=== PATIENT | male | born 1985 | race Caucasian/White ===

== ENCOUNTER 2017-12-27 19:09 | Inpatient (IN) | payer BC ==
[2017-12-27] MEDS ORDERED: DIAZEPAM 5 MG TAB PO STA (20:00)
[2017-12-27] MEDS ORDERED: KETOROLAC 30 MG/ML 1 ML VIAL IVP STA (20:00)
[2017-12-27] MEDS ORDERED: MORPHINE SULFATE 4 MG/ML SYRINGE IVP STA (20:00)
--- NOTE | 2017-12-27 20:12 | ED ---
General Adult HPI - General Source: patient, RN notes reviewed Mode of arrival: wheelchair Limitations: no limitations <Dionte Reddy - Last Filed: 12/27/17 20:07> <Anibal Sheridan - Last Filed: 12/27/17 21:05> <Cyn Obregon - Last Filed: 12/27/17 23:15> - General Chief complaint: Neck Pain/Injury Stated complaint: neck pain Time Seen by Provider: 12/27/17 19:42 - History of Present Illness Initial comments: Patient is a 32-year-old male presented to the emergency room today with a chief complaint of a herniated disc. Patient states that he went to a hospital in [facility] 2 weeks ago and was diagnosed with a herniated disc at C7. Patient does admit that he went in because he was experiencing pain going down to the left arm down to his fingertips with some numbness and tingling. Patient does admit that they want to perform the surgery. He states he left because he wanted to have second opinion. He has gone to a surgeon through [facility] who was unable to perform the surgery. He states he is waiting to see another specialist. He states been taking medications at home on Zanaflex, tramadol, gabapentin. He states only relieved with gabapentin. He states that today was sitting on a couch went to sit up and felt a pop in the neck. Patient states pain has been worse with certain movements and ambulating. Patient states still expresses pain going down left arm and hand. States numbness to the fingertips. Denies any other complaints or symptoms. Patient denies any recent fever, chills, shortness of breath, chest pain, back pain, abdominal pain, nausea or vomiting, visual changes, or any other complaints. ( Dionte Reddy) - Related Data Home Medications Medication Instructions Recorded Confirmed Gabapentin [Neurontin] 600 mg PO TID 12/27/17 12/27/17 tiZANidine HCL [Zanaflex] 4 mg PO Q4H 12/27/17 12/27/17 traMADol HCL [Ultram] 50 mg PO Q6HR PRN 12/27/17 12/27/17 Allergies Allergy/AdvReac Type Severity Reaction Status Date / Time onion Allergy Anaphylaxis Verified 12/27/17 19:45 sumatriptan [From Imitrex] Allergy Unknown Verified 12/27/17 19:45 Review of Systems ROS Other: All systems not noted in ROS Statement are negative. <Dionte Reddy - Last Filed: 12/27/17 20:07> ROS Other: All systems not noted in ROS Statement are negative. <Anibal Sheridan - Last Filed: 12/27/17 21:05> ROS Other: All systems not noted in ROS Statement are negative. <Cyn Obregon - Last Filed: 12/27/17 23:15> ROS Statement: Those systems with pertinent positive or pertinent negative responses have been documented in the HPI. Past Medical History Additional Past Medical History / Comment(s): herniated disc History of Any Multi-Drug Resistant Organisms: None Reported Past Surgical History: Orthopedic Surgery Past Psychological History: No Psychological Hx Reported Smoking Status: Never smoker Past Alcohol Use History: Rare Past Drug Use History: None Reported <Dionte Reddy - Last Filed: 12/27/17 20:07> General Exam Limitations: no limitations <Dionte Reddy - Last Filed: 12/27/17 20:07> <Anibal Sheridan - Last Filed: 12/27/17 21:05> <Cyn Obregon - Last Filed: 12/27/17 23:15> - General Exam Comments Initial Comments: General: The patient is awake and alert. Mild distress. Eye: Pupils are equal, round and reactive to light, extra-ocular movements are intact. No nystagmus. There is normal conjunctiva bilaterally. No signs of icterus. Ears, nose, mouth and throat: There are moist mucous membranes and no oral lesions. Neck: The neck is supple, there is no tenderness or JVD. Musculoskeletal: Patient does show limited range of motion of cervical spine due to pain. No tenderness on the thoracic lumbar spine. He is tender at C6- C7. Paravertebral tenderness both left and right sides in this area. Strength 5/5. Pulses equal bilaterally 2+. Neurological: A&O x 3. CN II-XII intact, There are no obvious motor or sensory deficits. Coordination appears grossly intact. Speech is normal. Skin: Skin is warm and dry and no rashes or lesions are noted. Psychiatric: Cooperative, appropriate mood & affect, normal judgment. (Dionte Reddy) Course <Dionte Reddy - Last Filed: 12/27/17 20:07> <Anibal Sheridan - Last Filed: 12/27/17 21:05> <Cyn Obregon - Last Filed: 12/27/17 23:15> Vital Signs 12/27/17 19:22 Temperature 98.2 F Pulse Rate 100 Respiratory 18 Rate Blood Pressure 167/90 O2 Sat by Pulse 99 Oximetry Was reassessed at 1925, he is unable to move his left arm muscle strength in the left arm is significantly decreased this worsening of the weakness in the left arm happened today after he heard a pop when he was trying to move at home he was seen in the hospital in [place] and then he was seen at [facility] now is radiating to hear back from your family I'm concerned about his motor deficit to the left arm and cannot do a CT of the cervical spine, ideally he needs MR and neurosurgeon or orthopedic surgeon with the spinal specialty, CT of the cervical spine is unremarkable MRI done out of the hospital was up noted in the system, considering the patient's severe symptoms and been admitted to Dr. Nj and will consult Dr. Talley. Here he has seen acute neurosurgeon's in the past he is seeking second and third opinion and is requesting for admission or transfer to another Center (Cyn Obregon) - Reevaluation(s) Reevaluation #1: 12/27/17 20:10 Patient states came to the emergency room because he is expressing increased pain in the back of the neck with radiation down the left arm. He does admit that these are symptoms that he's been expressing the last few weeks was told that he had a herniated disc at C7. Patient states that he was hoping to surgical consult. Initially did not want try any pain medicine for the pain. States they usually do not help. Patient does not want try steroids as he states it caused weight gain in the past. At this time patient is agreeable to try pain medication with muscle relaxant and anti-inflammatory to see if there is any improvement of symptoms. Case discussed and signed out to attending physician Dr. Sheridan (Dionte Reddy) Reevaluation #2: 12/27/17 21:05 The patient's care is endorsed to Dr. Obregon (Anibal Sheridan) Disposition <Dionte Reddy - Last Filed: 12/27/17 20:07> <Anibal Sheridan - Last Filed: 12/27/17 21:05> <Cyn Orbegon - Last Filed: 12/27/17 23:15> Clinical Impression: Neck pain, Radiculopathy, Left arm weakness Disposition: ADMITTED IP TO THIS [facility] Condition: Good Referrals: Valorie Smith DO [Primary Care Provider] - 1-2 days
[2017-12-27] MEDS ORDERED: DEXAMETHASONE SOD PHOSPHATE 10 MG/ML 1 ML VIAL IV STA (21:27)
--- NOTE | 2017-12-27 22:26 | CT ---
EXAMINATION TYPE: CT cervical spine wo con DATE OF EXAM: 12/27/2017 COMPARISON: NONE HISTORY: Neck pain. CT DLP: 1686.8 mGycm Automated exposure control for dose reduction was used. TECHNIQUE: CT scan of the cervical spine is obtained without contrast, axial images are obtained, sa gittal and coronal reformatted images are also reviewed. FINDINGS: The cervical vertebra have normal alignment. Disc spaces are fairly normal. Exam is limited by patient size. Posterior elements are intact. Facet joints appear normal. Skull base is intact. IMPRESSION: Normal CT scan of the cervical spine. No fracture.
[2017-12-27] MEDS ORDERED: ONDANSETRON 4 MG/2 ML VIAL IVP STA (22:36)
[2017-12-27] MEDS ORDERED: NALOXONE 0.4 MG/ML 1 ML VIAL IV PRN (23:15)
[2017-12-27] MEDS ORDERED: MORPHINE SULFATE 4 MG/ML SYRINGE IV PRN (23:15)
[2017-12-27] MEDS ORDERED: predniSONE 50 MG TAB PO STA (23:19)
[2017-12-27] MEDS ORDERED: AMOXIC-POT CLAV 875-125MG 1 EACH TAB PO STA (23:24)
[2017-12-28 00:41] VITALS: BMI 57.7
[2017-12-28] MEDS: tiZANidine 4 MG TAB PO SCH ×7 (00:56→23:31)
[2017-12-28] MEDS: KETOROLAC 30 MG/ML 1 ML VIAL IVP PRN ×3 (02:29→15:05)
[2017-12-28] MEDS: MORPHINE SULFATE 2 MG/ML SYRINGE IV PRN ×2 (05:54→12:16)
[2017-12-28] MEDS: ONDANSETRON 4 MG/2 ML VIAL IVP PRN (06:03)
[2017-12-28] MEDS: GABAPENTIN 300 MG CAP PO SCH ×3 (08:35→20:11)
[2017-12-28] MEDS ORDERED: AMOXIC-POT CLAV 875-125MG 1 EACH TAB PO SCH (09:00)
[2017-12-28] MEDS: traMADol 50 MG TAB PO PRN ×2 (11:44→19:01)
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
[2017-12-28 14:40] LABS: ALT 29 U/L (21-72); AST 20 U/L (17-59); Albumin 4.3 g/dL (3.5-5.0); Alkaline Phosphatase 72 U/L (38-126); Anion Gap 17 mmol/L; Blood Urea Nitrogen 22 mg/dL (9-20); Calcium 9.8 mg/dL (8.4-10.2); Carbon Dioxide 20 mmol/L (22-30); Chloride 103 mmol/L (98-107); Glucose 229 mg/dL (74-99); Potassium 4.7 mmol/L (3.5-5.1); Sodium 140 mmol/L (137-145); Total Bilirubin 0.4 mg/dL (0.2-1.3); Total Protein 7.1 g/dL (6.3-8.2)
[2017-12-28 14:51] LABS: Basophils % (A) 0 %; Eosinophils % (A) 0 %; HCT 43.5 % (39.0-53.0); HGB 15.1 gm/dL (13.0-17.5); Lymphocytes # (A) 0.9 k/uL (1.0-4.8); Lymphocytes % (A) 7 %; MCH 28.7 pg (25.0-35.0); MCHC 34.6 g/dL (31.0-37.0); MCV 82.9 fL (80.0-100.0); Mean Platelet Volume 7.2; Monocytes # (A) 0.5 k/uL (0-1.0); Monocytes % (A) 4 %; Neutrophils # (A) 10.7 k/uL (1.3-7.7); Neutrophils % (A) 88 %; Platelet Count 261 k/uL (150-450); RBC 5.25 m/uL (4.30-5.90); RDW 13.2 % (11.5-15.5); WBC 12.1 k/uL (3.8-10.6)
[2017-12-28] MEDS: PIPERACILLIN-TAZOBACTAM 3.375 GM in DEXTROSE/WATER 1 50ML.BAG IVPB SCH ×2 (15:08→23:31)
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
[2017-12-29] MEDS: MORPHINE SULFATE 2 MG/ML SYRINGE IV PRN ×3 (00:40→21:43)
[2017-12-29 05:10] LABS: Hemoglobin A1C 6.1 % (4.0-6.0)
[2017-12-29] MEDS: tiZANidine 4 MG TAB PO SCH ×6 (05:47→23:42)
[2017-12-29] MEDS: GABAPENTIN 300 MG CAP PO SCH ×3 (07:39→21:44)
[2017-12-29] MEDS: PIPERACILLIN-TAZOBACTAM 3.375 GM in DEXTROSE/WATER 1 50ML.BAG IVPB SCH ×2 (07:49→17:18)
[2017-12-29] MEDS: KETOROLAC 30 MG/ML 1 ML VIAL IVP PRN ×2 (09:26→20:54)
[2017-12-29 09:34] LABS: Basophils % (A) 0 %; Eosinophils % (A) 0 %; HCT 42.6 % (39.0-53.0); Lymphocytes # (A) 1.8 k/uL (1.0-4.8); Lymphocytes % (A) 15 %; MCH 27.6 pg (25.0-35.0); MCHC 32.8 g/dL (31.0-37.0); MCV 84.1 fL (80.0-100.0); Mean Platelet Volume 7.3; Monocytes # (A) 0.6 k/uL (0-1.0); Monocytes % (A) 5 %; Neutrophils # (A) 9.4 k/uL (1.3-7.7); Neutrophils % (A) 78 %; Platelet Count 263 k/uL (150-450); RBC 5.06 m/uL (4.30-5.90); RDW 13.4 % (11.5-15.5)
[2017-12-29 10:04] LABS: ALT 26 U/L (21-72); AST 13 U/L (17-59); Albumin 4.2 g/dL (3.5-5.0); Alkaline Phosphatase 77 U/L (38-126); Anion Gap 14 mmol/L; Blood Urea Nitrogen 23 mg/dL (9-20); Calcium 9.5 mg/dL (8.4-10.2); Carbon Dioxide 22 mmol/L (22-30); Chloride 107 mmol/L (98-107); Glucose 137 mg/dL (74-99); Potassium 4.5 mmol/L (3.5-5.1); Sodium 143 mmol/L (137-145); Total Bilirubin 0.2 mg/dL (0.2-1.3); Total Protein 6.8 g/dL (6.3-8.2)
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
[2017-12-29] MEDS: INSULIN ASPART 100 UNIT/ML 1 ML 10 ML VIAL SQ SCH ×4 (12:26→21:12)
[2017-12-29] MEDS ORDERED: IV FLUID CONTINUATION 1,000 ML IV ONE (12:37)
[2017-12-29 12:40] LABS: Glucose,Whole Blood 115 mg/dL (75-99)
[2017-12-29] MEDS: ONDANSETRON 4 MG/2 ML VIAL IVP PRN (12:43)
[2017-12-29] MEDS ORDERED: BACITRACIN 50,000 UNIT, POLYMYXIN B 500,000 UNIT in SODIUM CHLORIDE 0.9% IRRIGATIO 1,00... IRRIGATION ONE (12:45)
[2017-12-29] MEDS ORDERED: KETAMINE 10 MG/ML 20 ML VIAL ONE (12:50)
[2017-12-29] MEDS ORDERED: DEXAMETHASONE SOD PHOS (MDV) 100 MG/10 ML VIAL ONE (12:50)
[2017-12-29] MEDS ORDERED: PROPOFOL 10 MG/ML 20 ML VIAL IV ONE (12:50)
[2017-12-29] MEDS ORDERED: SUCCINYLCHOLINE CHLORIDE VIAL 200 MG/10 ML VIAL IV ONE (12:50)
[2017-12-29] MEDS ORDERED: ePHEDrine SULFATE/0.9% NACL/PF 50 MG/5 ML SYRINGE IV ONE (12:50)
[2017-12-29] MEDS ORDERED: MIDAZOLAM 2 MG/2 ML VIAL ONE (12:50)
[2017-12-29] MEDS ORDERED: fentaNYL (PF) 50 MCG/ML 2 ML AMP ONE (12:50)
[2017-12-29] MEDS ORDERED: LIDOCAINE 1% INJ 10MG/ML (20 ML MDV) ONE (12:50)
[2017-12-29] MEDS ORDERED: HYDROmorphone (PF) 1 MG/ML ONE (12:50)
[2017-12-29] MEDS ORDERED: CEFAZOLIN IV ONE ×2 (13:15)
[2017-12-29] MEDS ORDERED: SODIUM CHLORIDE 0.9% IV ONE ×2 (13:15)
[2017-12-29] MEDS ORDERED: LACTATED RINGERS 1,000 ML IV ONE (13:15)
[2017-12-29] MEDS ORDERED: BUPIVACAINE-EPI 0.5%-1:200,000 10 ML VIAL SQ ONE ×2 (13:34→15:04)
[2017-12-29] MEDS ORDERED: THROMBIN (BOVINE) 5,000 UNIT VIAL TOPICAL ONE (13:34)
[2017-12-29] MEDS ORDERED: GELATIN SPONGE,ABSORB (SMALL) 1 EACH SPONGE TOPICAL ONE (13:34)
[2017-12-29] MEDS ORDERED: BENZOCAINE/MENTHOL LOZENG 1 EACH LOZENGE MUCOUS MEM PRN (15:23)
[2017-12-29] MEDS ORDERED: HYDROmorphone 0.5 MG/0.5 ML SYRINGE IVP PRN ×2 (15:23)
[2017-12-29] MEDS ORDERED: DIAZEPAM 5 MG TAB PO PRN (15:23)
[2017-12-29] MEDS ORDERED: MAGNESIUM HYDROXIDE 2,400 MG/10 ML CUP PO PRN (15:23)
--- NOTE | 2017-12-29 15:34 | P.OP ---
Date of Procedure: 12/29/17 Preoperative Diagnosis: Cervical myelopathy, acute left upper extremity weakness, acute herniated nucleus pulposus C6 7 with neurologic change, left her extremity radiculopathy, neck pain with left upper extremity pain, morbid obesity Postoperative Diagnosis: Same Anesthesia: GETA Pathology: none sent Condition: stable Disposition: PACU Description of Procedure: BRIEF OPERATIVE NOTE Preoperative Diagnosis: Cervical myelopathy, left upper extremity acute weakness and radiculopathy, acute herniated nucleus pulposis C6 7, neck pain and left upper extremity pain, morbid obesity Postoperative Diagnosis: Same Procedure: Anterior cervical decompression with discectomy and fusion C6 7 Placement of interbody graft C6 7 Application of anterior cervical plate C6 7 Increased level of difficulty of the case due to patient's morbid obesity Surgeon: Dr. Godoy Public Relations: Physician congressional assistant student Anesthesia: General anesthesia Estimated blood loss: Approximately 100 mL Complications: None apparent Components implanted: K2M Marydel anterior cervical plate system with a 24 mm plate and 4 screws with the Vikos interbody allograft bone graft Disposition: To recovery room in good stable condition. OPERATIVE INDICATIONS The patient has had relatively new and acute issues in their neck and upper extremities. Approximately 3 weeks ago he started having severe pain in his neck and his left upper extremity. A couple months before that he was having pain at his neck and toward his left shoulder 3 weeks ago he started having severe weakness in his left upper extremity. He was evaluated initially in [place] and then in [place] and saw neurosurgery in those places. He was recommended for surgery but was unable proceed with surgical intervention at that point. He presented here at the current [facility] and upon evaluation was found have a large disc herniation at C6 7 which was acute for him causing acute symptoms at his neck and left upper extremity including weakness and early myelopathic symptoms at his left upper extremity hyperreflexia. The patient has been through some conservative treatment with IV steroids but was not having any improvement. We discussed various treatment options including surgery, and the patient wishes to proceed with surgery We discussed the risk, patient's alternatives and benefits of surgery including but not limited to, risk of bleeding risk of infection, risk of need for further surgery, risk of decreased, loss of motion, muscle function, malunion nonunion, hardware failure, nerve damage, paralysis, heart attack, and . OPERATIVE SUMMARY After discussing all the risks, patient alternatives and benefits at length, the patient elected to proceed with surgical intervention, signed informed consent, and presented for their procedure. The patient was seen and examined in the preoperative holding area and the surgical site was marked. The patient was given antibiotics and brought to the operating room. The patient was positioned on the operating room table in a supine position being careful to pad any bony prominences and pressure points. The patient is approximately 400 pounds and morbidly obese and we had to make special accounting for his body habitus in positioning itself. The patient was sedated and intubated by anesthesia in standard fashion. Once the airway and C-spine were stabilized the patient's arms were padded and tucked at her side, with her shoulders gently taped. The head was placed in a donut pad with the neck in good neutral alignment and position. We were careful to maintain the patient's cervical spine and good neutral alignment and position throughout. The patient was prepped and draped in a normal standard fashion. An appropriate timeout and keystone protocol performed. We were able to proceed with the surgery. The local wound area was infiltrated with local anesthetic. An incision was made transversely approximately 2-1/2 cm over the appropriate levels at C6. Dissection was taken down subcutaneously to the level of the platysma which was split in line with its fibers. Dissection was taken with a carotid approach, with the trachea and esophagus medial and the carotid sheath laterally. We dissected down to the anterior surface of the vertebral bodies. Given the patient's body habitus and morbid obesity the dissection and the entirety of the case required extra time and effort to perform. Intraoperative x-ray was taken in attempts to show the appropriate level. Multiple x-rays intraoperatively were taken. We were unable to directly visualize the C6 7 level on x-ray. I placed a needle at C5 6 and then at C4 5 to take intraoperative x-rays. I was able to visualize the needle at C4 5 disc space and I moved caudal 2 disc spaces to positively confirmed the C6 7 level. With the appropriate level positively confirmed, we were able to proceed with discectomy at the appropriate levels of C6 7. All of the operative levels were exposed appropriately. The patient had all their twitches back, and there was no evidence of recurrent laryngeal issue. The wound was copiously irrigated and suctioned dry as had been done periodically throughout the case. At the appropriate level/levels, I established an annulotomy with an 11 blade scalpel. A discectomy was performed with a combination of pituitary rongeurs, curettes , a high-speed bur, and Kerrison rongeurs. Note was made of large disc herniation which was extruded under the posterior longitudinal ligament causing severe stenosis centrally and at the left. The posterior longitudinal ligament was taken down as were any posterior osteophytes. This gave good central and bilateral foraminal decompression. There is no evidence of any dural tear or leak. The endplates were prepared with a high-speed bur. With the endplates in good parallel position, I was able to size for the appropriate size interbody graft. The wound was irrigated and suctioned dry the graft was prepared and malleted into position. It had good alignment and position with the anterior surface flush with the anterior surface of the vertebral bodies of C6 and C7. With the grafts intact, I was able to measure and contour and appropriate sized plate. The plate was positioned at the midline over the appropriate levels of C6 7. Screw holes were established with a hand drill and drill guide. Screws were placed in good alignment and position with excellent bony purchase. They were seated under the locking device. The construct was checked and found to be stable. Intraoperative x-ray was taken, but with the patient's body habitus it was impossible to see the C6 7 levels. There was no evidence of any dural tear or leak. Good hemostasis was maintained. The wound was copiously irrigated and suctioned dry as had been done periodically throughout the case. The platysma was closed with absorbable suture. The subcutaneous tissue was closed. The subcuticular tissue was closed with absorbable suture. The wound was cleaned and dried and dressed appropriately. A soft cervical collar was placed appropriately. The patient was woken up by anesthesia, extubated, transferred back gently to their hospital bed and brought to the recovery room in good stable condition. The patient will be admitted to the hospital for appropriate postoperative care , medical management and monitoring. We will continue to follow them closely about the postoperative course.
[2017-12-29] MEDS ORDERED: diphenhydrAMINE 50 MG/ML 1 ML VIAL IVP ONE (15:50)
--- NOTE | 2017-12-29 16:06 | XR ---
Limited cervical spine HISTORY: Needle placement Single lateral view of the cervical spine is submitted. There is a needle present within the C4-5 dis c space. Exam somewhat limited technically. Endotracheal tube is present. IMPRESSION: Orthopedic localization.
--- NOTE | 2017-12-29 16:07 | XR ---
EXAMINATION TYPE: XR cervical spine 1V DATE OF EXAM: 12/29/2017 COMPARISON: 12/29/2017 2:12 PM HISTORY: Hardware placement TECHNIQUE: Lateral view of the cervical spine was obtained FINDINGS/IMPRESSION: The patient is intubated. Cervical spine is only visualized at C2-C3 and maintai ns alignment. Paranasal sinus endoscope is noted during an intraoperative procedure.
[2017-12-29] MEDS: SODIUM CHLORIDE 0.9% 1,000 ML IV SCH (17:17)
[2017-12-29] MEDS: HYDROcodone/APAP 5-325MG 1 EACH TAB PO PRN ×2 (17:25→20:55)
[2017-12-29 17:32] LABS: Glucose,Whole Blood 119 mg/dL (75-99)
[2017-12-29] MEDS: traMADol 50 MG TAB PO PRN (19:16)
[2017-12-29 20:25] LABS: Glucose,Whole Blood 309 mg/dL (75-99)
[2017-12-29 21:49] LABS: Glucose,Whole Blood 255 mg/dL (75-99)
[2017-12-29 21:56] VITALS: TEMP 98
[2017-12-30] MEDS: traMADol 50 MG TAB PO PRN ×3 (00:47→14:01)
[2017-12-30] MEDS: HYDROcodone/APAP 5-325MG 1 EACH TAB PO PRN ×3 (00:48→10:49)
[2017-12-30] MEDS: KETOROLAC 30 MG/ML 1 ML VIAL IVP PRN ×2 (02:58→09:19)
[2017-12-30] MEDS: tiZANidine 4 MG TAB PO SCH ×3 (02:58→11:47)
[2017-12-30] MEDS: SODIUM CHLORIDE 0.9% 1,000 ML IV SCH (02:58)
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
[2017-12-30 07:08] LABS: Glucose,Whole Blood 133 mg/dL (75-99)
[2017-12-30] MEDS: INSULIN ASPART 100 UNIT/ML 1 ML 10 ML VIAL SQ SCH ×2 (07:21→11:49)
--- NOTE | 2017-12-30 08:53 | P.DS ---
Providers Date of admission: 12/28/17 15:07 Expected date of discharge: 12/30/17 Attending physician: Roya Nj Consults: 12/27/17 23:15 Consult Physician Stat Consulting Provider: Timur Godoy Consult Reason/Comments: Neck pain, radiculopathy, left arm weakness Do you want consulting provider notified?: Yes 12/29/17 10:38 Consult Physician Stat Consulting Provider: Kaitlin Obregon Consult Reason/Comments: right thigh abscess and surgical clearance for neck surgery Do you want consulting provider notified?: Yes Primary care physician: Valorie Smith - Discharge Diagnosis(es) (1) Herniated nucleus pulposus, C6-7 left Current Visit: Yes Status: Acute (2) Radiculopathy affecting upper extremity Current Visit: Yes Status: Acute (3) Morbid obesity Current Visit: Yes Status: Acute (4) Abscess of left thigh Current Visit: Yes Status: Acute (5) Left arm weakness Current Visit: Yes Status: Acute (6) Neck pain Current Visit: Yes Status: Acute Hospital Course: This is a pleasant 32-year-old male who presented with C6-7 herniated nucleus pulposus resulting in left paracentral and left neural foraminal stenosis with left upper extremity radiculopathy and weakness and cervical myelopathy. He was admitted for further evaluation to the emergency department and subsequently underwent surgical intervention yesterday, 12/29/2017. The patient underwent an anterior cervical decompression and fusion at C6-7 and tolerated the procedure well and did well postoperatively. He continues to have some pain in the surgical site but states overall his symptoms have significantly improved. He is not currently experiencing any left upper extremity radiculopathy. He has had some improvement in his strength already postsurgically, most significant with increased left vegetable trimmer strength. She does feel he is ready for discharge today. Condition on day of discharge stable. Patient will be discharged home. Patient was cleared preoperatively for surgery by Dr. Nj. Patient currently denies any nausea, vomiting, fever, or chills. Patient is eating and voiding freely without difficulty. Patient may shower Tegaderm dressing intact. Patient may remove Tegaderm dressing in 3 days and shower without a dressing at that time. Patient should keep Steri- Strips intact and allow them to fall off naturally. Patient should refrain from driving until at least after their first follow-up appointment in the office. Patient should avoid excessive neck flexion, extension, rotation, and lateral sidebending; no overhead lifting; no lifting greater than 10 pounds. Patient does admit to taking Ultram, Zanaflex, and Neurontin outpatient setting. He states he has limited number of alternative left. At discharge, he 'll be given a prescription for Ultram 50 mg 1-2 tabs every 6 hours as needed for pain, dispense #90. He is also had evidence of an infection of the posterior left thigh and has been on IV antibiotic medication. He was seen and examined by infectious disease yesterday and has had some improvement since beginning IV antibiotics. Will be given a prescription for Augmentin 875 mg/ 125 mg 1 tab every 12 hours dispense #20. Physical Exam on day of discharge: Patient is awake, alert, and oriented 3 Vital signs stable Good chest excursion with deep inspiration and expiration Abdomen soft nontender No signs or symptoms of DVT; no calf pain Full range of motion of the cervical spine with adequate flexion, extension, and bilateral rotation [employer] Guard strength, thumb strength, interosseous strength, biceps strength, triceps strength, and shoulder strength positive sustained bilaterally Soft cervical collar not currently intact Incision is clean, dry, and intact; no erythema, purulence, or signs of infection Tegaderm dressing and non-stick Telfa intact Procedures: Anterior cervical decompression and fusion C6-7 Patient Condition at Discharge: Good Plan - Discharge Summary New Discharge Prescriptions: New Amoxicillin/Potassium Clav [Augmentin 875-125 Tablet] 1 tab PO Q12HR #20 tab traMADol HCL [Ultram] 50 mg PO Q6HR PRN #90 tab PRN Reason: Pain No Action traMADol HCL [Ultram] 50 mg PO Q6HR PRN PRN Reason: Pain Gabapentin [Neurontin] 600 mg PO TID tiZANidine HCL [Zanaflex] 4 mg PO Q4H Discharge Medication List Gabapentin [Neurontin] 600 mg PO TID 12/27/17 [History] tiZANidine HCL [Zanaflex] 4 mg PO Q4H 12/27/17 [History] traMADol HCL [Ultram] 50 mg PO Q6HR PRN 12/27/17 [History] Amoxicillin/Potassium Clav [Augmentin 875-125 Tablet] 1 tab PO Q12HR #20 tab 08/18 [Rx] traMADol HCL [Ultram] 50 mg PO Q6HR PRN #90 tab 12/30/17 [Rx] Follow up Appointment(s)/Referral(s): Valorie Smith DO [Primary Care Provider] - 1-2 days Darius Jameson PAC [PHYSICIAN [employer] SERVICE TECHNICIAN] - 2 Weeks (Patient may follow-up with Darius Jameson PA-C or Dr. Kevon Godoy at [facility] in 2-3 weeks following discharge. ) Activity/Diet/Wound Care/Special Instructions: 1. Patient may shower with Tegaderm dressing intact. 2. Patient may remove Tegaderm dressing in 3 days and shower without a dressing at that time. 3. Patient should keep Steri-Strips intact and allow them to fall off naturally. 4. Patient should refrain from driving until at least after their first follow- up appointment in the office. 5. Patient should avoid excessive cervical flexion, extension, rotation, and sidebending; no lifting greater than 10 pounds 6. Take medications as prescribed 7. Do not soak in tub Discharge Disposition: HOME SELF-CARE
[2017-12-30] MEDS ORDERED: NYSTATIN 100,000 UNIT/GM POWD 15 GM TOPICAL SCH (09:00)
[2017-12-30] MEDS ORDERED: SENNOSIDES-DOCUSATE SODIUM 1 EACH TAB PO SCH (09:00)
[2017-12-30] MEDS: GABAPENTIN 300 MG CAP PO SCH (09:11)
[2017-12-30 09:53] VITALS: BP 145/81; PULSE 82; RESP 20
[2017-12-30 10:21] LABS: Basophils % (A) 0 %; Eosinophils % (A) 0 %; HCT 41.3 % (39.0-53.0); HGB 13.7 gm/dL (13.0-17.5); Lymphocytes # (A) 1.7 k/uL (1.0-4.8); Lymphocytes % (A) 15 %; MCH 28.6 pg (25.0-35.0); MCHC 33.2 g/dL (31.0-37.0); MCV 86.3 fL (80.0-100.0); Mean Platelet Volume 7.1; Monocytes # (A) 0.5 k/uL (0-1.0); Monocytes % (A) 5 %; Neutrophils # (A) 8.9 k/uL (1.3-7.7); Neutrophils % (A) 79 %; Platelet Count 277 k/uL (150-450); RBC 4.79 m/uL (4.30-5.90); RDW 13.6 % (11.5-15.5); WBC 11.2 k/uL (3.8-10.6)
[2017-12-30 10:33] LABS: ALT 27 U/L (21-72); AST 18 U/L (17-59); Alkaline Phosphatase 60 U/L (38-126); Anion Gap 14 mmol/L; Blood Urea Nitrogen 25 mg/dL (9-20); Calcium 9.1 mg/dL (8.4-10.2); Carbon Dioxide 23 mmol/L (22-30); Chloride 106 mmol/L (98-107); Glucose 213 mg/dL (74-99); Potassium 4.4 mmol/L (3.5-5.1); Sodium 143 mmol/L (137-145); Total Bilirubin 0.3 mg/dL (0.2-1.3); Total Protein 6.5 g/dL (6.3-8.2)
[2017-12-30 11:31] LABS: Glucose,Whole Blood 183 mg/dL (75-99)
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
--- NOTE | 2017-12-30 13:00 | PN ---
PROGRESS NOTE DATE OF SERVICE: 12/30/2017. REASON FOR FOLLOWUP: Left thigh cellulitis and groin area cutaneous . INTERVAL HISTORY: The patient is afebrile. Overall pain to the thigh area seemed to have improved. Denies having any chest pain or shortness of breath. Occasional cough. No abdominal pain and no diarrhea. PHYSICAL EXAMINATION: On examination, blood pressure 145/81 with a pulse of 82, temperature of 98. He is 96% on room air. General description is a middle aged male up in the room in no distress. RESPIRATORY SYSTEM: Unlabored breathing, clear to auscultation anteriorly. HEART: S1, S2. Regular rate and rhythm. ABDOMEN: Soft, no tenderness. Left posterior thigh area: Very minimal induration. No fluctuation was noticed. Redness padilla decreased. No drainage. LABS: Hemoglobin 13.7, white count 11.2. BUN of 25, creatinine 0.94. DIAGNOSTIC IMPRESSION AND PLAN: Patient with left posterior thigh cellulitis started more likely as a folliculitis could be a streptococcal infection, responded to cefazolin antibiotic. Will be switched over to Keflex 500 mg q.6 for 10 days with in between the groin area twice a day. This was explained to the nurse practitioner for the primary team. MMODL / IJN: [id number] /
== END 2017-12-30 15:45 | disposition home or self-care (01) | DRG 472 ==
LOC: EC 19:09 → 4MS4W 23:15 → OBSVTOIN 12-28 15:07 → 5MS5E 12-29 16:23
PROVIDERS: ADMIT Internal Medicine; ATTEND Internal Medicine
PROC: 0RT30ZZ Resection of Cervical Vertebral Disc, Open Approach (ICD-10-PCS; principal; 2017-12-28)
PROC: 0RG10A0 Fusion of Cervical Vertebral Joint with Interbody Fusion Device, Anterior Approach, Anterior Column, Open Approach (ICD-10-PCS; principal; 2017-12-28)
DX: M50.023 Cervical disc disorder at C6-C7 level with myelopathy (principal); Z68.43 Body mass index [BMI] 50.0-59.9, adult; L02.416 Cutaneous abscess of left lower limb; L03.116 Cellulitis of left lower limb; M50.123 Cervical disc disorder at C6-C7 level with radiculopathy; E66.01 Morbid (severe) obesity due to excess calories; E78.5 Hyperlipidemia, unspecified; I10 Essential (primary) hypertension; M48.02 Spinal stenosis, cervical region; Z79.899 Other long term (current) drug therapy; Z88.8 Allergy status to other drugs, medicaments and biological substances; Z91.018 Allergy to other foods; R73.03 Prediabetes
CPT/HCPCS: 72020; 72125; 80053; 83036; 85025; 96374; 96375; 99284

== ENCOUNTER 2018-01-02 23:56 | Emergency (ER) | payer BC ==
[2018-01-03] MEDS ORDERED: MORPHINE SULFATE 2 MG/ML SYRINGE IV STA (00:42)
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
[2018-01-03 01:37] LABS: Basophils # (A) 0.1 k/uL (0-0.2); Basophils % (A) 1 %; Eosinophils # (A) 0.3 k/uL (0-0.7); Eosinophils % (A) 3 %; HGB 15.2 gm/dL (13.0-17.5); Lymphocytes # (A) 3.1 k/uL (1.0-4.8); Lymphocytes % (A) 29 %; MCH 28.1 pg (25.0-35.0); MCHC 34.6 g/dL (31.0-37.0); MCV 81.4 fL (80.0-100.0); Mean Platelet Volume 6.5; Monocytes # (A) 0.5 k/uL (0-1.0); Monocytes % (A) 5 %; Neutrophils # (A) 6.6 k/uL (1.3-7.7); Neutrophils % (A) 62 %; Platelet Count 300 k/uL (150-450); RBC 5.41 m/uL (4.30-5.90); RDW 13.6 % (11.5-15.5); WBC 10.6 k/uL (3.8-10.6)
[2018-01-03 01:48] LABS: Anion Gap 15 mmol/L; Blood Urea Nitrogen 30 mg/dL (9-20); Calcium 11.1 mg/dL (8.4-10.2); Carbon Dioxide 27 mmol/L (22-30); Chloride 99 mmol/L (98-107); Glucose 100 mg/dL (74-99); Potassium 4.2 mmol/L (3.5-5.1); Sodium 141 mmol/L (137-145)
--- NOTE | 2018-01-03 01:57 | CT ---
EXAMINATION TYPE: CT neck chest w con DATE OF EXAM: 01/03/2018 1:43 AM COMPARISON: NONE HISTORY: neck pain post op csp surgery CT DLP: 2658.70 mGycm Automated exposure control for dose reduction was used. CONTRAST: CT scan of the neck is performed following with IV Contrast, patient injected with 100 mL of Isovue 3 00. Axial images are obtained, coronal and sagittal reformatted images are reviewed. FINDINGS: There are small patches of linear density in the mid and lower lung sullivan. There is no pleural effus ion. There is no pericardial effusion. Trachea appears normal. Exam is limited by the patient's size. There is normal aeration of the paranasal sinuses. There is no evidence of a pharyngeal mass. Thyroid gland is symmetric. There is metal hardware from the anterior cervical spine fusion surgery. Tonsils and adenoids appear normal. Exam is limited by the metal artifact. I see no focal bone destruction. There is no mediastinal adenopathy. Thoracic aorta appears normal. The bony thorax is intact. Parotid glands are symmetric. Submandibular salivary glands are symmetric. I see no significant cervical diego nopathy. IMPRESSION: Minimal subsegmental atelectasis in the lungs. Otherwise negative CT scan of the chest. Cervical spine fusion surgery. No evidence of retropharyngeal abscess or fluid.
[2018-01-03] MEDS ORDERED: ONDANSETRON 4 MG/2 ML VIAL IVP STA (02:16)
[2018-01-03 02:26] VITALS: BP 177/97; PULSE 87; RESP 18; TEMP 99
== END 2018-01-03 02:25 | disposition home or self-care (01) ==
LOC: EC 23:56
DX: G89.18 Other acute postprocedural pain (principal); M54.2 Cervicalgia; E66.9 Obesity, unspecified; Z79.899 Other long term (current) drug therapy; Z88.8 Allergy status to other drugs, medicaments and biological substances; Z91.018 Allergy to other foods; Z98.1 Arthrodesis status; Z68.43 Body mass index [BMI] 50.0-59.9, adult
CPT/HCPCS: 36415; 80048; 85025; 70491; 71260; 99284; 96374; 96375; J2405; J2270; Q9967

== ENCOUNTER → 2020-06-30 | Outpatient (CLI) | payer BC ==
[2020-06-30 13:34] VITALS: BP 150/85; PULSE 93; RESP 18; TEMP 98.1; BMI 56.8
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
[2020-06-30 14:59] LABS: HCT 42.7 % (39.0-53.0); HGB 14.8 gm/dL (13.0-17.5); MCH 29.9 pg (25.0-35.0); MCHC 34.6 g/dL (31.0-37.0); MCV 86.3 fL (80.0-100.0); Mean Platelet Volume 7.4; Platelet Count 255 k/uL (150-450); RBC 4.94 m/uL (4.30-5.90); RDW 13.2 % (11.5-15.5); WBC 10.1 k/uL (3.8-10.6)
[2020-07-01 00:09] LABS: African American GFR (CKD) 130.5 (60.0-200.0); Albumin 4.5 g/dL (3.80-4.90); Albumin/Globulin Ratio 2.14 (1.60-3.17); Anion Gap 7.4 mmol/L (4.00-12.00); BUN/Creat Ratio 22.22 Ratio (12.00-20.00); Calcium 9.6 mg/dL (8.7-10.3); Carbon Dioxide 28.6 mmol/L (21.6-31.8); Folate, Serum 12.4 ng/mL; Globulin 2.1 g/dL (1.6-3.3); Non-African American GFR(CKD) 112.6 (60.0-200.0); Potassium 4.3 mmol/L (3.5-5.5); Total Bilirubin 0.1 mg/dL (0.3-1.2); Total Protein 6.6 g/dL (6.2-8.2)
[2020-07-01 01:06] LABS: Hemoglobin A1C 6.5 % (4.0-6.0)
== END | disposition home or self-care (01) ==
LOC: BARWHC3 13:02
PROVIDERS: ATTEND Surgery
DX: E66.01 Morbid (severe) obesity due to excess calories (principal); Z68.43 Body mass index [BMI] 50.0-59.9, adult; G47.30 Sleep apnea, unspecified
CPT/HCPCS: 80053; 82306; 82607; 82746; 83036; 84425; 85027; 93005; 99211

== ENCOUNTER 2020-08-14 07:01 | Day surgery (SDC) | payer BC ==
[2020-08-11 14:54] VITALS: BMI 56.7
[~2020-08-14 07:01] MED LIST: LACTATED RINGERS 1,000 ML IV SCH; LIDOCAINE 1% (10MG/ML) FOR IV START INTRADERMA PRN
[2020-08-14 07:23] VITALS: TEMP 97.7
[2020-08-14 07:32] LABS: Glucose,Whole Blood 120 mg/dL (75-99)
[2020-08-14] MEDS ORDERED: GLYCOPYRROLATE 0.2 MG/ML 2 ML VIAL ONE (08:29)
[2020-08-14] MEDS ORDERED: KETAMINE 10 MG/ML 20 ML VIAL ONE (08:29)
[2020-08-14] MEDS ORDERED: PROPOFOL 10 MG/ML 20 ML VIAL IV ONE (08:29)
[2020-08-14] MEDS ORDERED: MIDAZOLAM 2 MG/2 ML VIAL ONE (08:29)
[2020-08-14] MEDS ORDERED: LIDOCAINE 1% INJ 10MG/ML (20 ML MDV) ONE (08:29)
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
--- NOTE | 2020-08-14 08:42 | P.OP ---
Date of Procedure: 08/14/20 Preoperative Diagnosis: Morbid obesity, BMI 57 GERD Postoperative Diagnosis: Morbid obesity Antral gastritis Procedure(s) Performed: EGD Anesthesia: MAC Surgeon: Sonu Terrell Pathology: other (Antrum) Condition: stable Disposition: PACU Description of Procedure: The patient's placed on the endoscopy table in the lateral position. He received IV sedation. The gastro-/oropharynx passed in the esophagus and stomach. Scope was placed through the pylorus. The first and second portion of the duodenum appeared normal. Scope was then brought back the antrum and this appeared mildly inflamed. A biopsies performed. Scope was unretroflexed and remainder stomach appeared normal. The GE junction was at 40 cm. The distal esophagus appeared normal. The proximal esophagus appeared normal. The scope was withdrawn for patient. The patient.
[2020-08-14 08:57] VITALS: BP 128/85; PULSE 76; RESP 16
== END 2020-08-14 09:15 | disposition home or self-care (01) ==
LOC: ORWHC2ENDO 07:01
PROVIDERS: ATTEND Surgery
DX: K29.50 Unspecified chronic gastritis without bleeding (principal); E66.01 Morbid (severe) obesity due to excess calories; Z68.44 Body mass index [BMI] 60.0-69.9, adult; E11.9 Type 2 diabetes mellitus without complications; K21.9 Gastro-esophageal reflux disease without esophagitis; I10 Essential (primary) hypertension; G47.30 Sleep apnea, unspecified; Z99.89 Dependence on other enabling machines and devices; Z87.81 Personal history of (healed) traumatic fracture; F17.200 Nicotine dependence, unspecified, uncomplicated; Z79.84 Long term (current) use of oral hypoglycemic drugs; Z79.899 Other long term (current) drug therapy; Z91.030 Bee allergy status; Z88.8 Allergy status to other drugs, medicaments and biological substances; Z91.018 Allergy to other foods
CPT/HCPCS: 43239; J2250; J2001; J2704; 88305

== ENCOUNTER → 2020-09-01 | Outpatient (CLI) | payer BC ==
[2020-09-01 13:02] VITALS: BP 154/86; PULSE 77; RESP 18; TEMP 98.3; BMI 58.1
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
== END | disposition home or self-care (01) ==
LOC: BARWHC3 12:39
PROVIDERS: ATTEND Surgery
DX: E66.01 Morbid (severe) obesity due to excess calories (principal); Z68.43 Body mass index [BMI] 50.0-59.9, adult
CPT/HCPCS: 99211

== ENCOUNTER → 2021-08-12 | Outpatient (CLI) | payer MEDICAID, OTHER ==
--- NOTE | 2021-08-17 08:38 | MR ---
MR right hip without contrast HISTORY: Pain Multiplanar multisequence imaging obtained through the pelvis with small [id number] images through the right hip. No plain film supplied for correlation. There is mildly heterogeneous signal along the femoral head which may be related to patient's prior s urgery, correlate for appropriate history. There is some limitation to the exam, motion is present, there is artifact, [id number] ratio is not optimal. There is slightly increased joint fluid on the right as compared to the left. Marginal spurring is barraza spected. Acetabular labrum shows on sagittal image #11 and 10 of series 801 some focal fluid signal, difficult to exclude small superior labral tear, nonarthrographic study, there is no paravertebral cy st. Joint space appears mildly reduced. There may be some underlying chondromalacia. No evident acute fracture or dislocation. Origins of the hamstring musculature are showing on the right, axial image #8 series 7017 asymmetric increased signal may represent a small interstitial tear, gluteus tendons show symmetric appearance, no evident tear at the level of their insertions. There is no pelvic adenopathy. Facet arthropathy is noted at the lower lumbar spine. Urinary bladder is partially contracted, thickened wall may be due to lack of distention but is indeterminate, correlate to exclude cystitis or chronic bladder outlet o bstruction. IMPRESSION: Osteoarthritis, correlate with plain film. Correlate for previous surgical history. Diffi cult to exclude acetabular labral tear on this noncontrast exam, possibly small interstitial tear ham string musculature as described.
== END | disposition home or self-care (01) ==
LOC: RADMRIMAIN 08:45
PROVIDERS: ATTEND Orthopaedic Surgery
DX: M16.11 Unilateral primary osteoarthritis, right hip (principal)

== ENCOUNTER → 2022-02-15 | Outpatient (CLI) | payer MEDICAID, OTHER ==
[2022-02-15 12:32] VITALS: BP 144/92; PULSE 80; RESP 18; TEMP 98.5
--- NOTE | 2022-02-15 14:26 | P.PAINPG ---
PQRS Measure Charge Sheet Comment: HISTORY OF PRESENT ILLNESS: 36 yr old male as a referral from Dr. Godoy presents today with severe and chronic neck pain secondary to DDD and facet arthropathy for evaluation. Pt states his pain level is 6/10 in intensity, lower aspect of his cervical spine with BL finger numbness. Pain is daily, sore in the cervical spine with burning/numbness shooting towards BL fingers. 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 Pain is provoked with hyperextension and overhead reaching. PMH: Diabetes Mellitus, GERD, HTN, Sleep Apnea/CPAP/BIPAP PSH: ACDF C6-C7 surgery, R Hip Replacement during childhood w hardware removed SH: Daily tobacco user, Rare ETOH use, No illicit drug use. Works as a dump truck driver off highway FH: Mother- No Reported History All: See list Meds: See list REVIEW OF ORGAN SYSTEMS: CONSTITUTIONAL: No fevers or chills. No recent weight loss. NEUROLOGICAL: + numbness and tingling along the distal extremities. No seizure disorders or headaches. MUSCULOSKELETAL: + pain PSYCHIATRIC: Denies current depression or suicidal tho ughts. Physical Examinations : Constitutional : Cooperative , not in acute distress . Neurologic : Cranial nerve II to XII intact. No focal neurological deficits. Psychiatric : alert & oriented x 3. Matching mood & appropriate affect. Judgment & insight intact. Musculoskeletal : Cervical Spine Motor strength in the deltoid and biceps: Normal right side. Normal Left side Motor strength biceps and the wrist extensors: Normal right side . Normal left side Motor strength in the triceps muscle: Normal right side. Normal left side Deep tendon reflexes: Normal at the biceps. Normal at Brachioradialis. Normal at triceps Vertebral body tenderness to deep palpation over Cervical facet loading test: positive bilaterally over BL C5-C6, C6-C7 Spurling test: positive bilaterally Neck distraction test: positive bilaterally Jackie sign: positive bilaterally Lumbar spine Motor strength lower extremities ,thigh and legs 5/5 Right side , 5/5 Left side Deep tendon reflexes : Normal Knee Jerk. Normal Ankle Jerk Vertebral body tenderness over Lumbar facet Loading Test: positive Right / positive Left Range of motion of the lumbar spine Flexion 30 degrees, extension 10 degrees Straight Leg Raise test: Left/ Right positive at degree Juan Luis test: positive right / positive left. Severe tenderness over the Sacroiliac joint on the Right / Left sides Gaenslen test: positive bilaterally Seated flexion test: positive bilaterally. Sacral spine : Severe tenderness over the Sacroiliac joint: right side / left side Range of motion: Flexion of the lumbar spine <60 degrees Range of motion: Extension of the lumbar spine <20 degrees Gaenslen's Test positive Blake's Test positive Juan Luis test: positive right side / left side Thigh Thrust Test Sacral Thrust Test Imaging: CT without contrast of cervical spine from 12/24/21 reviewed MRI without contrast of the cervical spine to be completed 02/15/22 Assessment/ Plan : Cervical DDD Recommendation of PT 3 times per week x 6 weeks Re: M50.30 Recommendation of facet blocks of the medial branches BL C5-C6, C6-C7. May need a series of injections, up until RFA, for optimal pain relief. Risks, benefits of procedure discussed and patient verbalized understanding. Denies aspirin or anti- coagulant use. Admits to a medical history of diabetes. Protocol for d iscontinuation/ continuation of medications jose procedure discussed. All questions answered. I have spent greater than 30 minutes on patient care today. Dr Thompson was available by phone for the evaluation of this patient. The time was used to review the medical records including relevant urine studies and Prescription history (MAPs), review of the available imaging, evaluation and examination of the patient, coordination of care with the medical staff and if applicable referring physicians, as well as creation of the medical record PQRS Narrative: Smoking Status Never smoker Home Medications: Ambulatory Orders Semaglutide [Ozempic] 0.5 mg SQ WEEKLY 06/30/20 metFORMIN HCL [Glucophage] 1,000 mg PO BID 06/30/20 Losartan [Cozaar] 50 mg PO QAM 07/01/20 Ergocalciferol [Vitamin D2] 50,000 unit PO Q7D 08/11/20 Controlled Substance Measures - Controlled Substance Measures Is patient prescribed a controlled substance at discharge?: No
== END ==
LOC: PNWHC3 11:12
PROVIDERS: ATTEND Specialist
DX: M50.10 Cervical disc disorder with radiculopathy, unspecified cervical region (principal); E11.9 Type 2 diabetes mellitus without complications; I10 Essential (primary) hypertension; Z79.84 Long term (current) use of oral hypoglycemic drugs; Z91.030 Bee allergy status; Z91.018 Allergy to other foods; Z88.6 Allergy status to analgesic agent
CPT/HCPCS: 99211

== ENCOUNTER → 2022-02-15 | Outpatient (CLI) | payer OTHER ==
--- NOTE | 2022-02-16 04:47 | MR ---
EXAMINATION TYPE: MR cervical spine wo/w con DATE OF EXAM: 02/15/2022 COMPARISON: 12/09/2017 HISTORY: ARM AND FINGER PAIN AND NUMBNESS X4 YEARS CONTRAST: Standard multiplanar, multisequence MRI departmental protocol images were obtained without contrast a nd with 15ML mL intravenous Gadavist gadolinium contrast. The cervical vertebra have normal alignment. disc spaces are fairly well-maintained. There is metal artifact from anterior fusion surgery at C6-7. Spinal canal appears normal. No spinal stenosis. Cervical spinal cord has normal signal pattern. No edema. Brainstem is intact. There is no evidence of cervical paraspinal mass. No compression fracture . No focal bone destruction. Contrast images show no pathologic enhancement. IMPRESSION: Anterior fusion surgery at C6-7. No complicating process seen. No spinal stenosis. Normal cervical sp inal cord. There is clearing of the disc herniation at C6-7 compared to old exam.
== END | disposition home or self-care (01) ==
LOC: RADMRIMAIN 20:45
PROVIDERS: ATTEND Orthopaedic Surgery Orthopaedic Surgery of the Spine
DX: M50.223 Other cervical disc displacement at C6-C7 level (principal)
CPT/HCPCS: 72156; A9585

== ENCOUNTER → 2022-09-03 | Outpatient (CLI) | payer OTHER ==
[2022-09-03 14:43] LABS: HCT 46.5 % (39.6-50.0); MCH 27.6 pg (27.0-32.0); MCHC 32.3 g/dL (32.0-37.0); MCV 85.6 fL (80.0-97.0); NRBC Per 100 WBC 0 /100 WBCS (0.0-0.0); Platelet Count 250 X 10*3/uL (140-440); RBC 5.43 X 10*6/uL (4.40-5.60); RDW 12.6 % (11.5-14.5); WBC 7.31 X 10*3/uL (4.50-10.00)
[2022-09-03 18:53] LABS: ALT 24 U/L (10-49); AST 19 U/L (14-35); African American GFR (CKD) 115.4 (60.0-200.0); Albumin 4.5 g/dL (3.8-4.9); Albumin/Globulin Ratio 1.86 (1.60-3.17); Alkaline Phosphatase 76 U/L (41-126); Blood Urea Nitrogen 13.1 mg/dL (9.0-27.0); Carbon Dioxide 27.9 mmol/L (20.0-27.5); Chloride 100 mmol/L (96-109); Chol/HDL Ratio 6.03 Ratio; Globulin 2.4 g/dL (1.6-3.3); Glucose 114 mg/dL (70-110); LDL Cholesterol,Calculated 112.9 mg/dL (0.0-131.0); Non-African American GFR(CKD) 99.6 (60.0-200.0); Potassium 4.3 mmol/L (3.5-5.5); Sodium 139 mmol/L (135-145); Total Protein 6.9 g/dL (6.2-8.2)
== END | disposition home or self-care (01) ==
LOC: LABWHC1 10:28
PROVIDERS: ATTEND Physician Assistant
DX: Z00.00 Encounter for general adult medical examination without abnormal findings (principal)
CPT/HCPCS: 36415; 80053; 80061; 83036; 84443; 85027

== ENCOUNTER → 2022-11-26 | Outpatient (CLI) | payer OTHER ==
[2022-11-26 20:04] LABS: HCT 48.1 % (39.6-50.0); HGB 15.7 g/dL (13.0-17.0); MCH 28.6 pg (27.0-32.0); MCHC 32.6 g/dL (32.0-37.0); MCV 87.6 fL (80.0-97.0); Mean Platelet Volume 10.7 fL (9.5-12.2); NRBC Per 100 WBC 0 /100 WBCS (0.0-0.0); Platelet Count 284 X 10*3/uL (140-440); RBC 5.49 X 10*6/uL (4.40-5.60); RDW 12.5 % (11.5-14.5); WBC 7.23 X 10*3/uL (4.50-10.00)
[2022-11-26 20:14] LABS: African American GFR (CKD) 106.1 (60.0-200.0); Albumin 4.5 g/dL (3.8-4.9); Albumin/Globulin Ratio 1.78 (1.60-3.17); Anion Gap 12.4 mmol/L (10.00-18.00); BUN/Creat Ratio 13.14 Ratio (12.00-20.00); Blood Urea Nitrogen 13.8 mg/dL (9.0-27.0); Globulin 2.5 g/dL (1.6-3.3); HDL Cholesterol 32.5 mg/dL (40.00-60.00); Non-African American GFR(CKD) 91.5 (60.0-200.0); Potassium 4.7 mmol/L (3.5-5.5); Total Bilirubin 0.4 mg/dL (0.30-1.20); Total Protein 7.1 g/dL (6.2-8.2)
[2022-11-26 21:14] LABS: Chol/HDL Ratio 5.6 Ratio; LDL Cholesterol,Direct Reflex 88.5 mg/dL (0.00-129.00)
== END | disposition home or self-care (01) ==
LOC: LABWHC1 11:35
PROVIDERS: ATTEND Physician Assistant Medical
DX: I10 Essential (primary) hypertension (principal); E66.01 Morbid (severe) obesity due to excess calories; E11.65 Type 2 diabetes mellitus with hyperglycemia
CPT/HCPCS: 36415; 80053; 80061; 83036; 83721; 84443; 85027

== ENCOUNTER → 2022-12-15 | Outpatient (CLI) | payer OTHER ==
--- NOTE | 2022-12-15 15:46 | P.SLEEP ---
History of Present Illness DATE: 12/15/2022 CONSULTATION/NEW PATIENT EVALUATION HISTORY OF PRESENT ILLNESS/SLEEP-WAKE EVALUATION: 37-year-old gentleman had been evaluated in the sleep center for obstructive sleep apnea hypopnea syndrome. Patient has history of obstructive sleep apnea hypopnea syndrome diagnosed in [facility] in 2016. Sleep study at that time showed that patient has extremely severe sleep apnea with apnea-hypopnea index 104.9. Since that time patient is on treatment with BiPAP. Patient continued to use BiPAP equipment every night. I checked BiPAP unit maximal inspiratory pressure 20, minimal expiratory pressure 13, pressure-support of 5, average pressure 18/13. Usage 29 out of 30 nights, average 8.1 hours per night. Apnea-hypopnea index 0.1 SLEEP SCHEDULE: Usually sleep schedule for about 6-7 hours. FALLING ASLEEP: Patient does have problems with falling asleep, has TV set and bedroom. DURING SLEEP: Patient usually sleeps on systemic position and wakes up from sleep 3 times with nocturia. No history of hypnogogical hallucinations, sleep paralysis, or cataplexy. DURING THE DAY/WAKE STATE: Patient may fill sleepiness during the day for sleepiness scale is 10. Patient doesn't take naps. PAST MEDICAL HISTORY: Diabetes mellitus. PAST SURGICAL HISTORY: Hip surgery in 1998, neck surgery for C7 herniated disc in 2017. MEDICATIONS: Metformin 1000 mg twice a day, ozempic once a week. SOCIAL HISTORY: Negative for smoking, alcohol consumption occasional. FAMILY HISTORY: Mostly negative. REVIEW OF SYSTEMS: Awakenings from sleep while using BiPAP, tiredness during the day. No fevers. No double vision. No recent chest pain. No shortness of breath. No abdominal pain. No bleeding episodes. No blood in urine. No seizure episodes. PHYSICAL EXAMINATION: GENERAL: A pleasant patient without any distress. VITAL SIGNS: BP 135/89 , HR 90 , RR 16 , weight 364.4 pounds, height 5 foot 11.5 inches, body mass index 50 . HEENT: PERRLA, EOMI. Evaluation of oropharynx showed tongue protrudes midline, low position of soft palate Mallampati 4. NECK: Supple. No JVD. Thyroid is not palpable. 19 inches in circumference. LUNGS: Clear to percussion and to auscultation. Good air exchange. No wheezing or rhonchi. HEART: S1, S2 regular. No murmurs, gallops or rubs. ABDOMEN: Soft and nontender. Bowel sounds are present. No organomegaly appreciated. EXTREMITIES: No clubbing or cyanosis. TOY CONSULTANT: Awake, alert, and oriented x3. Cranial nerves 2 to 7 intact. There is no fa sciculation or atrophy noted. No focal deficits observed. ASSESSMENT: 1. Extremely severe obstructive sleep apnea hypopnea syndrome by results of sleep study at another institution apnea-hypopnea index 104. Patient demonstrated good compliance with BiPAP treatment, but wakes up from sleep well using BiPAP and fill tiredness and sleepiness during the day. 2. Obesity body mass index 50. 3. Diabetes mellitus. 4. Status post hip surgery. 5 status post neck surgery for herniated disc. 6. pharmacy delivery driver PLAN: 1. BiPAP titration if sleep study confirms obstructive sleep apnea-hypopnea syndrome. 2. Continue to use BiPAP equipment every night 3. Preferable position during sleep on the side. 4. No driving if patient feels any sleepiness. Patient is aware of civil and criminal liability for unsafe driving. 5. Sleep hygiene with regular sleep time for at least 7.5-8 hours. 6. Watching and aggressive losing weight. 7. 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 Patient may need to get new BiPAP equipment. Thank you very much for referring this patient for consultation. Sincerely, Massimo Vegas MD, PhD, FAASM. 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 History of Any Multi-Drug Resistant Organisms: None Reported Past Surgical History: Orthopedic Surgery Additional Past Surgical History / Comment(s): Surgery on right pelvis and femur with hardware removed,herniated disc repair neck Past Anesthesia/Blood Transfusion Reactions: No Reported Reaction Additional Past Anesthesia/Blood Transfusion Reaction / Comment(s): no hx blood transfusion Smoking Status: Current some day smoker - Past Family History Mother Family Medical History: No Reported History Medications and Allergies Home Medications Medication Instructions Recorded Confirmed Type Semaglutide [Ozempic] 0.5 mg SQ WEEKLY 06/30/20 02/15/22 History metFORMIN HCL [Glucophage] 1,000 mg PO BID 06/30/20 02/15/22 History Losartan [Cozaar] 50 mg PO QAM 07/01/20 02/15/22 History Ergocalciferol [Vitamin D2] 50,000 unit PO Q7D 08/11/20 02/15/22 History Allergies Allergy/AdvReac Type Severity Reaction Status Date / Time bee venom protein (honey bee) Allergy Anaphylaxis Verified 02/15/22 12:17 onion Allergy Anaphylaxis Verified 02/15/22 12:17 sumatriptan [From Imitrex] Allergy head Verified 02/15/22 12:17 numbness Sleep Note - Sleep Note Sleep Note: Temperature: Pulse Rate: Respiratory Rate: Blood Pressure: SpO2: Height: Weight: BMI: Neck Circumference:
== END ==
LOC: SLEEP 14:58
PROVIDERS: ATTEND Internal Medicine
DX: G47.33 Obstructive sleep apnea (adult) (pediatric) (principal); E66.9 Obesity, unspecified; Z68.43 Body mass index [BMI] 50.0-59.9, adult; Z96.643 Presence of artificial hip joint, bilateral; Z98.890 Other specified postprocedural states; Z99.89 Dependence on other enabling machines and devices; Z91.030 Bee allergy status; Z91.018 Allergy to other foods
CPT/HCPCS: 99211

== ENCOUNTER 2023-01-20 18:57 | Outpatient (CLI) | payer OTHER | END 2023-01-21 23:59 | LOC: 3 N SLEEP 18:57 → EDSTATUS 20:00 → 3 N SLEEP 01-21 05:45 | PROVIDERS: ATTEND Internal Medicine | DX: G47.33 Obstructive sleep apnea (adult) (pediatric) (principal); Z91.030 Bee allergy status; Z91.018 Allergy to other foods; Z88.8 Allergy status to other drugs, medicaments and biological substances | CPT/HCPCS: 95811 ==

== ENCOUNTER 2023-03-11 22:59 | Emergency (ER) | payer OTHER ==
[2023-03-11 23:07] VITALS: TEMP 98.2
[2023-03-12] MEDS ORDERED: KETOROLAC 15 MG/ML 1 ML VIAL IM STA (00:02)
--- NOTE | 2023-03-12 00:35 | ED ---
Lower Extremity Injury HPI - General Chief Complaint: Extremity Injury, Lower Stated Complaint: Ankle pain Time Seen by Provider: 03/12/23 00:02 Source: patient Mode of arrival: ambulatory Limitations: no limitations - History of Present Illness Initial Comments: Patient is a 37-year-old male who presents to the emergency department for left ankle pain. 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 Denies other injury. Today he stood up and rolled his ankle causing increased pain mostly in the inside of his ankle. Pain significantly worsened with walking. No numbness or tingling. No fever or chills, nausea or vomiting. - Related Data Home Medications Medication Instructions Recorded Confirmed Semaglutide [Ozempic] 0.5 mg SQ WEEKLY 06/30/20 02/15/22 metFORMIN HCL [Glucophage] 1,000 mg PO BID 06/30/20 02/15/22 Losartan [Cozaar] 50 mg PO QAM 07/01/20 02/15/22 Ergocalciferol [Vitamin D2] 50,000 unit PO Q7D 08/11/20 02/15/22 Previous Rx's Medication Instructions Recorded Ibuprofen [Motrin] 800 mg PO Q6H PRN #30 tab 03/12/23 Allergies Allergy/AdvReac Type Severity Reaction Status Date / Time bee venom protein (honey bee) Allergy Anaphylaxis Verified 03/11/23 23:07 onion Allergy Anaphylaxis Verified 03/11/23 23:07 sumatriptan [From Imitrex] Allergy head Verified 03/11/23 23:07 numbness Review of Systems ROS Statement: Those systems with pertinent positive or pertinent negative responses have been documented in the HPI. ROS Other: All systems not noted in ROS Statement are negative. 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 History of Any Multi-Drug Resistant Organisms: None Reported Past Surgical History: Orthopedic Surgery Additional Past Surgical History / Comment(s): Surgery on right pelvis and femur with hardware removed,herniated disc repair neck Past Anesthesia/Blood Transfusion Reactions: No Reported Reaction Additional Past Anesthesia/Blood Transfusion Reaction / Comment(s): no hx blood transfusion Past Psychological History: No Psychological Hx Reported Smoking Status: Former smoker Past Alcohol Use History: Occasional Past Drug Use History: None Reported - Past Family History Mother Family Medical History: No Reported History General Exam Limitations: no limitations Eye exam: Present: normal appearance, PERRL, EOMI. Absent: scleral icterus, conjunctival injection, periorbital swelling Respiratory exam: Present: normal lung sounds bilaterally. Absent: respiratory distress, wheezes, rales, rhonchi, stridor Cardiovascular Exam: Present: regular rate, normal rhythm, normal heart sounds. Absent: systolic murmur, diastolic murmur, rubs, gallop, clicks Extremities exam: Present: other (Tenderness left medial ankle minimal swelling laxity. No erythema, warmth, blanching. Neurovascularly intact. Full range of motion) Neurological exam: Present: alert Psychiatric exam: Present: normal affect, normal mood Skin exam: Present: warm, dry, intact, normal color. Absent: rash Course Vital Signs 03/11/23 03/12/23 23:02 02:06 Temperature 98.2 F Pulse Rate 89 84 Respiratory 17 18 Rate Blood Pressure 121/88 118/70 O2 Sat by Pulse 97 99 Oximetry Procedures - Orthopedic Splinting/Casting Injury #1 Side: left Lower Extremity Immobilizer: AirCast Other Orthopedic Equipment: crutches Medical Decision Making - Medical Decision Making Was pt. sent in by a medical professional or institution ([facility], STORAGE ADMINISTRATOR, urgent care, hospital, or residential...) When possible be specific @ -No Did you speak to anyone other than the patient for history (EMS, parent, family, police, friend...)? What history was obtained from this source @ -No Did you review nursing and triage notes (agree or disagree)? Why? @ -I reviewed and agree with nursing and triage notes Were old charts reviewed (outside hosp., previous admission, EMS record, old EKG, old radiological studies, urgent care reports/EKG's, residential records)? Report findings @ -No old charts were reviewed Differential Diagnosis (chest pain, altered mental status, abdominal pain women, abdominal pain men, vaginal bleeding, weakness, fever, dyspnea, syncope, headache, dizziness, GI bleed, back pain, seizure, CVA, palpatations, mental he alth)? Ankle sprain, ankle fracture, contusion. This list is not meant to be all- inclusive EKG by me (3pts min.). @ -None X-ray interprted by me (1pt min.). @ -no acute fracture or dislocation CT iterpretedby me (1pt min.). @ -[None done] U/S nterprete by me (1pt. min.). @ -[None done] Whattesting ws considered but not performed or refused? (CT, X-rays, U/S, labs)? Why? @ -[None] What medswereconsidered but not given or refused? Why? @ -[None] Did you dscus the management of the patient with other professionals (professionals i.e. , PA, STORAGE ADMINISTRATOR, lab, RT, psych nurse, clinical social work aide, electrical laboratory technician, teacher, rating officer, caser in)? Give summary @ -[No] Was smokingcesation discussed for >3mins.? @ -[No] Was critica cre preformed (if so, how long)? @ -[No] Were there ocal determinants of health that impacted care today? How? (Homelessness, low income, unemployed, alcoholism, drug addiction, transportation, low edu. Level, literacy, decrease access to med. care, correction, rehab)? @ -[No] Was there d-ecalation of care discussed even if they declined (Discuss DNR or withdrawal of care, Hospice)? DNR status @ -[No] What co-moridties impacted this encounter? (DM, HTN, Smoking, COPD, CAD, Cancer, CVA, ARF, Chemo, Hep., AIDS, mental health diagnosis, sleep apnea, morbid obesity)? @ -[None] Was patiet admitted / discharged? Hospital course, mention meds given and route, prescriptions, significant lab abnormalities, going to OR and other pertinent info. Discharged with splint and crutches for left ankle sprain. He is referred to beef specialist Unfdiagnosed new problem with uncertain prognosis? @ -[No] Drug Therapy requiring intensive monitoring for toxicity (Heparin, Nitro, Insulin, Cardizem)? @ -[No] Were any procedures done? @ -[splinting Diagnosis/symptom? @ -Left ankle sprain Acute, or Chronic, or Acute on Chronic? @ -acute Uncomplicated (without systemic symptoms) or Complicated (systemic symptoms)? @ - uncomplicated Side effects of treatment? @ -[No] Exacerbation, Progression, or Severe Exacerbation? @ -[No] Poses a threat to life or bodily function? How? (Chest pain, [place], [place], pneumonia, PE, COPD, DKA, ARF, appy, cholecystitis, CVA, Diverticulitis, Homicidal, Suicidal, threat to staff... and all critical care pts) @-No Dr. Merida is my attending Disposition Clinical Impression: Left ankle sprain Disposition: HOME SELF-CARE Condition: Good Instructions (If sedation given, give patient instructions): Ankle Sprain (ED) Additional Instructions: Rest and elevate the joint as much as possible. Ice the injury for the next 24- 48 hours. If symptoms continue after, apply warm compress. Take Tylenol or Motrin as needed for pain. Use crutches and keep splint on. Bare weight as pain tolerates. Follow-up with beef specialist in 1 to 2 days. Return to the emergency department if you experience new, concerning, or worsening symptoms. Prescriptions: Ibuprofen [Motrin] 800 mg PO Q6H PRN #30 tab PRN Reason: Pain Is patient prescribed a controlled substance at d/c from ED?: No Referrals: Humza Smith MD [Primary Care Provider] - 1-2 days Alex Molina MD [STAFF PHYSICIAN] - 1-2 days
--- NOTE | 2023-03-12 02:03 | XR ---
EXAM: XR Left Ankle Complete, 3 or More Views CLINICAL HISTORY: ITS.REASON XR Reason: Rolling ankle. TECHNIQUE: Frontal, lateral and oblique views of the left ankle. COMPARISON: No relevant prior studies available. FINDINGS: Bones/joints: No fracture or malalignment. Soft tissues: Mild soft tissue edema about the ankle. IMPRESSION: No fracture or malalignment.
--- NOTE | 2023-03-12 02:04 | XR ---
EXAM: XR Left Foot Complete, 3 or More Views CLINICAL HISTORY: ITS.REASON XR Reason: Rolling ankle. TECHNIQUE: Frontal, lateral and oblique views of the left foot. COMPARISON: No relevant prior studies available. FINDINGS: Bones/joints: No fracture or malalignment. Soft tissues: Unremarkable. IMPRESSION: No fracture or malalignment.
[2023-03-12 02:07] VITALS: BP 118/70; PULSE 84; RESP 18
== END 2023-03-12 02:30 | disposition home or self-care (01) ==
LOC: EC 22:59
DX: S93.402A Sprain of unspecified ligament of left ankle, initial encounter (principal); E11.9 Type 2 diabetes mellitus without complications; I10 Essential (primary) hypertension; E66.9 Obesity, unspecified; Z68.43 Body mass index [BMI] 50.0-59.9, adult; Z79.84 Long term (current) use of oral hypoglycemic drugs; Z79.899 Other long term (current) drug therapy; Z88.8 Allergy status to other drugs, medicaments and biological substances; Z91.030 Bee allergy status; Z91.018 Allergy to other foods; Z87.891 Personal history of nicotine dependence; X50.1XXA Overexertion from prolonged static or awkward postures, initial encounter
CPT/HCPCS: 96372; 99283

== ENCOUNTER → 2023-03-25 | Outpatient (CLI) | payer OTHER | END | disposition home or self-care (01) | LOC: LABWHC1 10:53 | PROVIDERS: ATTEND Family Medicine | DX: Z53.9 Procedure and treatment not carried out, unspecified reason (principal) ==

== ENCOUNTER → 2023-04-18 | Outpatient (CLI) | payer OTHER ==
--- NOTE | 2023-04-19 09:34 | MR ---
MRI left ankle without contrast HISTORY: Ankle pain COMPARISON: None TECHNIQUE: Multiecho multiplanar images of the ankle were obtained without contrast. FINDINGS: There are prominent subchondral changes in the navicular bone at the articular surface with the first cuneiform. First cuneiform appears intact. Remaining osseous structures appear normal without fracture edema. The Achilles tendon, extensor tendons, flexor tendons and peroneal tendons are intact and there are n o tendon tears or tendinitis. The medial and lateral collateral ligaments are intact. Sinus tarsi is normal. The plantar fascia is normal. IMPRESSION: Abnormal navicular bone as described above with no other significant abnormality seen.
== END | disposition home or self-care (01) ==
LOC: RADMRIMAIN 19:20
PROVIDERS: ATTEND Podiatrist
DX: S93.422D Sprain of deltoid ligament of left ankle, subsequent encounter (principal); S93.492D Sprain of other ligament of left ankle, subsequent encounter; S93.412D Sprain of calcaneofibular ligament of left ankle, subsequent encounter; M25.372 Other instability, left ankle; G57.52 Tarsal tunnel syndrome, left lower limb; M25.572 Pain in left ankle and joints of left foot

== ENCOUNTER → 2024-01-01 | Outpatient (CLI) | payer BC, OTHER ==
--- NOTE | 2024-01-02 06:00 | MR ---
EXAMINATION TYPE: MR hip RT wo con DATE OF EXAM: 01/01/2024 COMPARISON: Prior MRI right hip August 12, 2021 HISTORY: Rt Hip Pain, Locking and Limited Movement x 3months Standard multiplanar, multisequence MRI departmental protocol Multiplanar, multisequence images of the pelvis were acquired without contrast. FINDINGS: Symmetric small size it joint effusions are redemonstrated similar to prior. Symmetric mild to moderate narrowing of both hip joints is redemonstrated. Femoral head shapes are maintained bilat erally. Persistent serpiginous diminished T1 signal involving the right femoral head overlying the sl ightly medial aspect coronal images 16 and 17 and coronal image 13 could reflect product of old traum a or healed fracture similar to prior. Bone marrow signal intensity shows overall heterogeneity. No n ew suspicious increased T2 signal or edema seen. Muscle bulk is symmetric and maintained. No groin he rnia or adenopathy is seen. Prostate gland is normal in size. Urinary bladder shows poor distention with moderate to severe joaquin ntric wall thickening. Correlate clinically to exclude acute bladder infection. No free fluid in the pelvis. IMPRESSION: [id number] degenerative changes of right hip redemonstrated as detailed above. Stab le small to borderline moderate size joint effusion. Suspect old healed in the femoral head similar to prior.
== END | disposition home or self-care (01) ==
LOC: RADMRIMAIN 13:27
PROVIDERS: ATTEND Family Medicine
DX: M16.11 Unilateral primary osteoarthritis, right hip (principal); M25.851 Other specified joint disorders, right hip

== ENCOUNTER → 2024-02-08 | Outpatient (CLI) | payer BC, OTHER ==
--- NOTE | 2024-02-09 15:30 | MR ---
EXAMINATION TYPE: MR lumbar spine wo con DATE OF EXAM: 02/08/2024 7:37 PM CLINICAL INDICATION:Male, 38 years old with history of M79.2 NEURALGIA AND NEURITIS, UNSPECIFIED; PHH , Right hip pain x6 months, COMPARISON: None TECHNIQUE: Multi planar, multi sequence imaging was performed utilizing: T1-weighted, T2-weighted, a nd turbo inversion recovery imaging of the lumbar spine. IV Contrast: cc . (None if empty) FINDINGS: Alignment: The lumbar vertebral bodies have preserved heights and alignment. Cord: The conus medullaris and the distal spinal cord appear unremarkable with regards to their signa l intensity and morphology. Bones/Discs: Minimal disc degeneration changes worse at L5-S1 with disc space narrowing, osteophytes and Modic endplate changes. Intervertebral disc signal is maintained. No abnormal inversion recovery signal to suggest bony edema. T12-L1: No evidence of significant spinal canal stenosis or neural foraminal stenosis. L1-L2: No evidence of significant spinal canal stenosis or neural foraminal stenosis. L2-L3: No evidence of significant spinal canal stenosis or neural foraminal stenosis. L3-L4: No evidence of significant spinal canal stenosis or neural foraminal stenosis. L4-L5: No evidence of significant spinal canal stenosis or neural foraminal stenosis. L5-S1: The disc has a rounded posterior morphology without significant spinal canal stenosis. Facet j oint arthropathy with mild bilateral neural foraminal stenosis. No significant spinal canal or neural foraminal stenosis in the remainder of the visualized levels. Other findings: None. IMPRESSION: 1. No definitive evidence of disc herniation or significant spinal canal stenosis. 2. Mild disc degeneration with associated osteoarthritic changes. No significant neural foraminal st enosis.
== END | disposition home or self-care (01) ==
LOC: RADMRIMAIN 18:28
PROVIDERS: ATTEND Family Medicine
DX: M51.36 Other intervertebral disc degeneration, lumbar region (principal); M79.2 Neuralgia and neuritis, unspecified
CPT/HCPCS: 72148